=== PATIENT | female | born 1970 | race African-American/Black ===

== ENCOUNTER 2018-07-26 11:25 | Emergency (ER) | payer BC | END 2018-07-26 12:20 | disposition left against medical advice (07) | LOC: MADERS 11:25 | DX: Z53.21 Procedure and treatment not carried out due to patient leaving prior to being seen by health care provider (principal) ==

== ENCOUNTER 2019-11-14 18:48 | Emergency (ER) | payer BC ==
[2019-11-14] MEDS ORDERED: Famotidine In NaCl 20 mg/50 ml Premix Bag ONE (19:03)
[2019-11-14] MEDS ORDERED: methylPREDNISolone Sod Succ/PF 125 MG/2 ML VIAL ONE (19:03)
[2019-11-14] MEDS ORDERED: EPINEPHrine 1 MG/ML AMP ONE (19:26)
[2019-11-14] MEDS ORDERED: Ketorolac Tromethamine 30 MG/ML VIAL ONE (21:35)
== END 2019-11-14 22:45 | disposition home or self-care (01) ==
LOC: MADERS 18:48
DX: T78.2XXA Anaphylactic shock, unspecified, initial encounter (principal); E11.9 Type 2 diabetes mellitus without complications; E78.5 Hyperlipidemia, unspecified; E78.00 Pure hypercholesterolemia, unspecified; I10 Essential (primary) hypertension; J45.909 Unspecified asthma, uncomplicated; Z79.51 Long term (current) use of inhaled steroids; Z79.84 Long term (current) use of oral hypoglycemic drugs; Z79.899 Other long term (current) drug therapy
CPT/HCPCS: 96365; 96372; 96375; J0171; J1885; J2930

== ENCOUNTER 2019-12-30 21:15 | Emergency (ER) | payer BC ==
[2019-12-30] MEDS ORDERED: Dexamethasone 4 MG TAB ONE (21:45)
[2019-12-30] MEDS ORDERED: Acetaminophen 325 MG TAB ONE (21:45)
[2019-12-30] MEDS ORDERED: Diazepam 5 MG TAB ONE (21:45)
[2019-12-30] MEDS ORDERED: HYDROcodone/Acetaminophen 10/325 mg Tablet ONE (21:45)
[2019-12-30] MEDS ORDERED: Ketorolac Tromethamine 60 MG/2 ML VIAL ONE (21:47)
== END 2019-12-30 22:00 | disposition home or self-care (01) ==
LOC: MADERS 21:15
DX: M54.41 Lumbago with sciatica, right side (principal); Z79.891 Long term (current) use of opiate analgesic
CPT/HCPCS: 96372; 99283; J1885; J8540

== ENCOUNTER 2020-03-01 19:07 | Emergency (ER) | payer SELFPAY ==
[2020-03-01] MEDS ORDERED: Ondansetron ODT 4 MG TAB ONE (19:50)
[2020-03-01] MEDS ORDERED: Ketorolac Tromethamine 30 MG/ML VIAL ONE (19:51)
[2020-03-01] MEDS ORDERED: Cyclobenzaprine 10 MG TAB ONE (19:51)
--- NOTE | 2020-03-01 20:28 | RAD ---
PORTABLE CHEST: 03/01/20 HISTORY: Cough. COMPARISON: 10/11/08 study. Heart size and mediastinum are within normal limits. The lungs are clear of any infiltrative process. No significant bony findings. IMPRESSION: No active intrathoracic disease. POS: [facility]
[2020-03-01] MEDS ORDERED: Neomycin/Polymyxin/HC Otic Solution 10 ML BOT ONE (20:47)
[2020-03-01] MEDS ORDERED: Neomycin-Polymyxin-Hc 7.5 ML BOT ONE (20:53)
== END 2020-03-01 21:25 | disposition home or self-care (01) ==
LOC: MADERS 19:07
DX: M54.41 Lumbago with sciatica, right side (principal); J20.9 Acute bronchitis, unspecified; H10.89 Other conjunctivitis; I10 Essential (primary) hypertension; Z79.891 Long term (current) use of opiate analgesic; X50.9XXA Other and unspecified overexertion or strenuous movements or postures, initial encounter
CPT/HCPCS: 71045; 96372; J1040; J1885; Q0162

== ENCOUNTER 2023-07-07 09:15 | Outpatient (CLI) | payer OTHER | END 2023-07-07 09:16 | disposition home or self-care (01) | LOC: MADRAD 09:15 | PROVIDERS: ATTEND Internal Medicine | DX: M47.26 Other spondylosis with radiculopathy, lumbar region (principal) | CPT/HCPCS: 72100 ==

== ENCOUNTER 2023-10-27 19:08 | Emergency (ER) | payer OTHER ==
[2023-10-27] MEDS ORDERED: Lidocaine 1% w/Epinephrine 1:100K 20 ML VIAL ONE (21:38)
[2023-10-27] MEDS ORDERED: Lidocaine 1% PF 5 ML VIAL ONE (21:39)
== END 2023-10-27 22:38 | disposition home or self-care (01) ==
LOC: MADERS 19:08
DX: S83.91XA Sprain of unspecified site of right knee, initial encounter (principal); S60.351A Superficial foreign body of right thumb, initial encounter; M76.61 Achilles tendinitis, right leg; I10 Essential (primary) hypertension; Z79.899 Other long term (current) drug therapy; W18.30XA Fall on same level, unspecified, initial encounter

== ENCOUNTER 2025-11-10 02:37 | Emergency (ER) | payer OTHER | END 2025-11-10 03:04 | disposition home or self-care (01) | LOC: MADERS 02:37 | DX: I83.892 Varicose veins of left lower extremity with other complications (principal); I10 Essential (primary) hypertension; E11.9 Type 2 diabetes mellitus without complications; Z79.899 Other long term (current) drug therapy; Z79.84 Long term (current) use of oral hypoglycemic drugs; Z79.85 Long-term (current) use of injectable non-insulin antidiabetic drugs | CPT/HCPCS: 99283 ==